=== PATIENT | female | born 1965 | race Caucasian/White ===

== ENCOUNTER 2022-09-15 17:44 | Emergency (ER) | payer BC, MEDICAID ==
[~2022-09-15] VITALS: Ht 167.6 cm; Wt 91.6 kg
[2022-09-15 18:05] VITALS: BP 179/89
--- NOTE | 2022-09-15 19:05 | NUR ---
57 Y/O FEMALE BIB SELF C/O HEADACHE, DIZZINESS, DENIES NAUSEA OR VOMITING. PER PT SHE STOOD UP WHEN SHE WAS CLEANING THE BATHROOM WHEN THE BACK OF HER HEAD HIT THE [place] AT 1400, DENIES LOC. -BLOOD THINNERS NKA PMH: HTN, HDL
[2022-09-15] MEDS ORDERED: ONDA-188 PO (19:49)
[2022-09-15] MEDS ORDERED: ACET-10509 PO (19:49)
--- NOTE | 2022-09-15 20:02 | NUR ---
Patient discharged with v/s stable. Written and verbal after care instructions given and explained. Patient alert, oriented and verbalized understanding of instructions. Ambulatory with steady gait. All questions addressed prior to discharge. ID band removed. Patient advised to follow up with PMD. Rx of TYLENOL EXTRA STRENGTH ZOFRAN given.
== END 2022-09-15 20:02 | disposition home or self-care (01) ==
LOC: MED 17:44
DX: R51.9 Headache, unspecified (principal); I10 Essential (primary) hypertension; Z79.899 Other long term (current) drug therapy
CPT/HCPCS: 99283